=== PATIENT | female | born 1955 | race Caucasian/White ===

== ENCOUNTER 2025-03-08 15:27 | Emergency (ER) | payer MEDICARE ==
[2025-03-08] MEDS ORDERED: Ondansetron PF 4 MG/2 ML Vial ONE (16:04)
[2025-03-08 16:24] LABS: #Basophils 0.1 thou/uL (0.0-0.2); #Eosinophils 0.1 thou/uL (0.0-0.7); #Lymphocytes 1.6 thou/uL (1.20-3.40); #Monocytes 0.7 thou/uL (0.11-0.59); #Neutrophils 4.2 thou/uL (1.40-6.50); %Basophils 1.3 % (0.0-1.0); %Eosinophils 2.2 % (0.0-10.0); %Lymphocytes 23.4 % (21.0-51.0); %Monocytes 10.9 % (0.0-10.0); %Neutrophils 62.3 % (42.0-75.0); Hematocrit 39.0 % (36.0-47.0); Hemoglobin 13.0 g/dL (12.0-16.0); Mean Corpuscular Hemoglobin 31.0 pg (27.0-31.0); Mean Corpuscular Volume 92.6 fl (78.0-98.0); Platelet Count 305 10x3/uL (130-400); Red Blood Cell (RBC) Count 4.21 mill/uL (4.20-5.40); White Blood Cell (WBC) Count 6.7 10x3/uL (4.8-10.8)
[2025-03-08 16:44] LABS: ALT (SGPT) 20 U/L (Less than 34); AST (SGOT) 38 U/L (11-34); Albumin 3.8 g/dL (3.1-4.5); Alkaline Phosphatase 36 U/L (40-110); Anion Gap 16 mmol/L (10-20); BUN (Urea Nitrogen) 14 mg/dL (9.8-20.1); Bilirubin, Total 1.0 mg/dL (0.3-1.2); Calc. Creatinine Clearance 0 mL/min (70-130); Calcium 9.3 mg/dL (7.8-10.44); Carbon Dioxide 24 mmol/L (23-31); Chloride 96 mmol/L (98-107); Globulin 3.1 g/dL (2.4-3.5); Glucose 116 mg/dL (83-110); Lipase 28 U/L (8-78); Potassium 3.7 mmol/L (3.5-5.1); Sodium 132 mmol/L (136-145)
[2025-03-08 17:20] LABS: Troponin I Less than 0.010 ng/mL (< 0.028)
== END 2025-03-08 18:00 | disposition home or self-care (01) ==
LOC: NAV ERS 15:27
DX: R07.89 Other chest pain (principal); N28.9 Disorder of kidney and ureter, unspecified; I95.9 Hypotension, unspecified; E86.0 Dehydration; R29.700 NIHSS score 0; I10 Essential (primary) hypertension; I48.91 Unspecified atrial fibrillation
CPT/HCPCS: 71045; 80053; 83690; 84484; 85025; 85379; 93005; 94760; 96361; 96374; J2405